=== PATIENT | female | born 1965 | race Caucasian/White ===

== ENCOUNTER 2016-03-27 11:55 | Observation (INO) | payer OTHER ==
--- NOTE | 2016-03-27 12:08 | PDOC ---
History of Present Illness - General Chief Complaint: Palpitations Stated Complaint: PALPITATIONS Time Seen by Provider: 03/27/16 12:04 - History of Present Illness Initial Comments: 03/27/16 13:02 Chief complaint: Palpitations History of present illness: Patient began experiencing episodes of chest palpitations approximately one week ago while on a college visit with her daughter in [place]. These episodes have persisted, last anywhere from a few seconds to a few minutes, and resolved spontaneously. They are times accompanied by mild lightheadedness, but no vertigo or syncope. There's been no chest pain or shortness of breath, nausea or diaphoresis. Review of systems: As noted above. In addition, no vaginal bleeding or discharge , no urinary tract symptoms including urgency frequency hesitancy dysuria or hematuria, no abdominal pain, no visual or focal neurologic symptoms. Remainder systems reviewed and found to be negative Past medical history: Patient has no history of cardiac disease, and no prior complaints of chest pain, shortness of breath, lightheadedness, dizziness, vertigo, or palpitations. No significant medical or surgical problems past or present. 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 Occasional social alcohol, none recently. Admits considerable stress due to her daughter's college search and possibly leaving home for [place]. Family history: Reviewed and significant for thyroid cancer, father who of a probable [place] in his late 40s. Physical exam: Alert oriented 3 well-developed well-nourished no acute distress cheerful and cooperative Afebrile, vital signs normal. However, runs of nonsustained V. tach are present on the monitor. Past History - Past Medical History Allergies/Adverse Reactions: Allergies Allergy/AdvReac Type Severity Reaction Status Date / Time Penicillins Allergy Verified 03/27/16 11:56 Sulfa (Sulfonamide Allergy Verified 03/27/16 11:56 Antibiotics) Home Medications: Ambulatory Orders Ibuprofen [Motrin -] 600 mg PO TID PRN 03/27/16 Methocarbamol [Robaxin -] 500 mg PO BID PRN 03/27/16 Other medical history: H/O CHRONIC SHOULDER/ NECK PAIN - Psycho/Social/Smoking Cessation Hx Anxiety: No Suicidal Ideation: No Smoking History: Current every day smoker Have you smoked in the past 12 months: Yes Number of Cigarettes Smoked Daily: 20 Information on smoking cessation initiated: Yes 'Breaking Loose' booklet given: 03/27/16 Hx Alcohol Use: No Drug/Substance Use Hx: No Substance Use Type: None *Physical Exam - Vital Signs Last Vital Signs Temp Pulse Resp BP Pulse Ox 98.4 F 79 16 144/90 99 03/27/16 11:55 03/27/16 13:48 03/27/16 13:48 03/27/16 13:48 03/27/16 13:48 ED Treatment Course - LABORATORY CBC & Chemistry Diagram: 03/27/16 12:20 03/27/16 12:20 - ADDITIONAL ORDERS Additional order review: Laboratory Results 03/27/16 03/27/16 03/27/16 13:30 12:45 12:20 INR Sodium Potassium Chloride Carbon Dioxide Anion Gap BUN Creatinine Creat Clearance w eGFR Random Glucose Calcium Magnesium 2.1 Total Bilirubin AST ALT Alkaline Phosphatase Creatine Kinase Creatine Kinase Index Cancelled CK-MB (CK-2) Troponin I Total Protein Albumin TSH 1.76 Urine Color Yellow Urine Appearance Clear Urine pH 6.0 Ur Specific [place] <= 1.005 Urine Protein Negative Urine Glucose (UA) Negative Urine Ketones Negative Urine Blood Negative Urine Nitrite Negative Urine Bilirubin Negative Urine Urobilinogen 0.2 e.u/dl Ur Leukocyte Esterase Negative Urine HCG, Qual Negative 03/27/16 03/27/16 03/27/16 12:20 12:20 12:20 INR 0.93 L Sodium 138 Potassium 4.3 Chloride 104 Carbon Dioxide 23 Anion Gap 11 BUN 10 Creatinine 0.7 Creat Clearance w eGFR > 60 Random Glucose 85 Calcium 9.9 Magnesium Total Bilirubin 0.9 AST 27 ALT 24 Alkaline Phosphatase 76 Creatine Kinase 246 H Creatine Kinase Index Cancelled CK-MB (CK-2) 5.0 H Troponin I < 0.03 L Total Protein 7.5 Albumin 4.8 TSH Urine Color Urine Appearance Urine pH Ur Specific [place] Urine Protein Urine Glucose (UA) Urine Ketones Urine Blood Urine Nitrite Urine Bilirubin Urine Urobilinogen Ur Leukocyte Esterase Urine HCG, Qual 03/27/16 12:20 RBC 5.27 H MCV 89.0 MCHC 33.5 RDW 13.2 MPV 9.4 D Neutrophils % 67.6 Lymphocytes % 25.1 Monocytes % 6.0 Eosinophils % 0.8 Basophils % 0.5 - RADIOLOGY Radiology Studies Ordered: Category Date Time Status CHEST X-RAY PORTABLE* [RAD] Stat Radiology 03/27/16 13:25 Completed Medical Decision Making - Medical Decision Making 03/27/16 14:32 EKG: Sinus rhythm with PVCs, frequent. Normal axes and intervals. No ST-T wave changes. Normal EKG, other than frequent PVCs While being monitored, runs of nonsustained VT were noted, as many as 5 consecutive beats. CBC and chemistries showed a white count of 13,000 with a normal differential, mildly elevated H&H. Cardiac enzymes were normal. Electrolytes and magnesium are normal. Urine clear, negative Dr. Scott Peng contacted by phone. Case was discussed. She will admit the patient for further monitoring and cardiac evaluation Dr. Altman, typesetter perforator operator, was contacted. The case was discussed. He recommended no immediate treatment but will see the patient in consultation as soon as possible. Patient remains asymptomatic, palpitations have resolved, and the monitor is revealing less frequent PVCs. Stable upon transfer to the floor. *DC/Admit/Observation/Transfer Diagnosis at time of Disposition: Ventricular tachycardia - Discharge Dispostion Admit: Yes Decision to Admit order Date/Time: Decision to Admit Order Category Date Time Status Decision to Admit to Hospital Routine Admission 03/27/16 13:55 Active
[2016-03-27 12:52] LABS: MAGNESIUM 2.1 mg/dL (1.8-2.4)
[2016-03-27 12:54] LABS: ALBUMIN 4.8 g/dl (3.5-5.0); ALK PHOS 76 U/L (32-92); ANION GAP 11 (8-16); BILIRUBIN,TOTAL 0.9 mg/dl (0.2-1.0); CALCIUM 9.9 mg/dl (8.4-10.2); CO2 23 mmol/L (22-28); CPK(DFH) 246 IU/L (26-140); CREATININE 0.7 mg/dl (0.6-1.3); GLUCOSE,RANDOM 85 mg/dl (74-106); SGOT/AST 27 U/L (10-42); SGPT/ALT 24 U/L (10-40); TOT PROT 7.5 g/dl (6.4-8.3)
[2016-03-27 13:05] LABS: URINE APPEARANCE Clear; URINE BILIRUBIN Negative (NEGATIVE); URINE BLOOD Negative (NEGATIVE); URINE GLUCOSE (UA) Negative (NEGATIVE); URINE KETONE Negative (NEGATIVE); URINE LEUK ESTERASE Negative (NEGATIVE); URINE NITRITE Negative (NEGATIVE); URINE PROTEIN Negative (NEGATIVE); URINE UROBILINOGEN 0.2 E.U/dl (0.2-1.0)
[2016-03-27 13:08] LABS: URINE COLOR YELLOW
[2016-03-27 13:24] LABS: TROPONIN I (DFP) < 0.03 ng/ml (0.03-0.50)
[2016-03-27 13:28] LABS: INR 0.93 (0.82-1.09); PROTHROMBIN TIME (PATIENT) 10.4 SEC (10.2-13.0)
[2016-03-27 13:29] LABS: BASOPHIL 0.5 % (0-2.0); EOSINOPHIL 0.8 % (0-4.5); MCH 29.8 pg (25.7-33.7); MCHC 33.5 g/dl (32.0-36.0); MEAN PLT VOLUME 9.4 fl (7.5-11.1); NEUTROPHILS 67.6 % (42.8-82.8); PLATELET COUNT 262 K/MM3 (134-434); RDW 13.2 % (11.6-15.6); WHITE BLOOD COUNT 13.3 K/mm3 (4.0-10.0)
[2016-03-27 13:42] LABS: THYROXINE (T4) 8.1 ug/dl (4.8-13.9)
[2016-03-27 13:48] LABS: THYROID STIMULATING HORMONE 1.76 uIU/ml (0.358-3.74)
[2016-03-27 16:18] VITALS: BMI 25.6
--- NOTE | 2016-03-27 18:06 | CON.CARD ---
Consult Consult Specialty:: Cardiology Referred by:: ED Reason for Consultation:: Palpitations, PVC - History of Present Illness Chief Complaint: Palpitations History of Present Illness: 50 yo patient h/o tobacco abuse presented for evaluation of palpitations (at times exertional and also at rest) starting approximately one week ago while on a college visit with her daughter in [place]. These episodes have persisted, last anywhere from a few seconds to a few minutes, and resolved spontaneously. They are times accompanied by mild lightheadedness, without true syncope. She denies chest pain or shortness of breath, orthopnea, PND, LE edema or change in exercise capacity. Review of systems: As noted above. In addition, no vaginal bleeding or discharge , no urinary tract symptoms including urgency frequency hesitancy dysuria or hematuria, no abdominal pain, no visual or focal neurologic symptoms. Remainder systems reviewed and found to be negative Past medical history: Patient has no history of cardiac disease, and no prior complaints of chest pain, shortness of breath, lightheadedness, dizziness, vertigo, or palpitations. No significant medical or surgical problems past or present. 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 Occasional social alcohol, none recently. Admits considerable stress due to her daughter's college search and possibly leaving home for [place]. Family history: Reviewed and significant for thyroid cancer, father who of a probable [place] in his late 40s. - History Source History Provided By: Patient Limitations to Obtaining History: No Limitations - Past Medical History ...: No - Alcohol/Substance Use Hx Alcohol Use: No - Smoking History Smoking history: Current every day smoker Have you smoked in the past 12 months: Yes Aproximately how many cigarettes per day: 20 Home Medications - Allergies Allergies/Adverse Reactions: Allergies Allergy/AdvReac Type Severity Reaction Status Date / Time Penicillins Allergy Verified 03/27/16 11:56 Sulfa (Sulfonamide Allergy Verified 03/27/16 11:56 Antibiotics) - Home Medications Home Medications: Ambulatory Orders Ibuprofen [Motrin -] 600 mg PO TID PRN 03/27/16 Methocarbamol [Robaxin -] 500 mg PO BID PRN 03/27/16 Review of Systems - Review of Systems Cardiovascular: reports: Palpitations Vital Signs: Vital Signs Temperature 98.4 F 03/27/16 11:55 Pulse Rate 70 03/27/16 15:00 Respiratory Rate 18 03/27/16 15:00 Blood Pressure 140/78 03/27/16 15:00 O2 Sat by Pulse Oximetry (%) 99 03/27/16 13:48 Constitutional: Yes: No Distress, Calm Neck: Yes: Supple Respiratory: Yes: Regular, CTA Bilaterally Gastrointestinal: Yes: Normal Bowel Sounds, Soft Cardiovascular: Yes: Regular Rate and Rhythm JVD: No Carotid Bruit: No Heart Sounds: Yes: S1, S2 Edema: No - Other Data Labs, Other Data: INR, PTT INR 0.93 (0.82-1.09) L 03/27/16 12:20 SR @ 76 with ventricular couplet Imaging - Results Chest X-ray: Report Reviewed (NAD) Problem List - Problems (1) Ventricular ectopic beats Code(s): I49.3 - VENTRICULAR PREMATURE DEPOLARIZATION (2) Palpitations Code(s): R00.2 - PALPITATIONS (3) Tobacco abuse Code(s): Z72.0 - TOBACCO USE Assessment/Plan 1. Palpitations referable to PVC 2. Tobacco abuse P:1. Start Toprol XL 25 qd 2. Holter monitor to assess arrhythmia burden 3. Echocardiogram to assess ventricular and valve fxn 4. Tobacco cessation 5. Thank you for consultative opportunity
[2016-03-27] MEDS ORDERED: IBUPROFEN 600 MG TABLET (FP) PO PRN (19:01)
[2016-03-27] MEDS ORDERED: diphenhydrAMINE HCL 25 MG CAPSULE (FP) PO PRN (19:05)
[2016-03-27] MEDS ORDERED: DOCUSATE SODIUM 100 MG CAPSULE (FP) PO PRN (19:06)
[2016-03-27] MEDS: METOPROLOL SUCCINATE 25 MG TAB.SR.24H (FP) PO SCH (19:21)
[2016-03-27] MEDS: HEPARIN NA (PORCINE) 5,000 UNITS/ML 1ML VIAL SQ SCH (21:18)
--- NOTE | 2016-03-27 21:44 | PN ---
Progress Note, Physician Chief Complaint: CORRECTION -> WRONG Format -> SEE H&P format History of Present Illness: 50 f w only signif PMH for Nicotine dependance who was w [facility] 1 week ago w sudden onset of palpiations both slow and fast intermittently w some assoc lightheadedness but no other sxs. 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 She has been placed under Observation. Cardiology was consulted who started pt on Metoprolol Succ 25 mg/ day. Pt is also w Garment Steamer. - Current Medication List Current Medications: Active Medications Diphenhydramine HCl (Benadryl -) 25 mg PO HS PRN PRN Reason: INSOMNIA Docusate Sodium (Colace -) 100 mg PO BID PRN PRN Reason: CONSTIPATION Heparin Sodium (Porcine) (Heparin -) 5,000 unit SQ BID [facility] Last Admin: 03/27/16 21:18 Dose: 5,000 unit Ibuprofen (Motrin -) 600 mg PO TID PRN PRN Reason: PAIN Metoprolol Succinate (Toprol Xl -) 25 mg PO DAILY [facility] Last Admin: 03/27/16 19:21 Dose: 25 mg - Objective Vital Signs: Vital Signs Temperature 98.4 F 03/27/16 11:55 Pulse Rate 70 03/27/16 15:00 Respiratory Rate 18 03/27/16 19:02 Blood Pressure 140/78 03/27/16 15:00 O2 Sat by Pulse Oximetry (%) 99 03/27/16 13:48 Constitutional: Yes: No Distress Labs: INR, PTT INR 0.93 (0.82-1.09) L 03/27/16 12:20
--- NOTE | 2016-03-27 21:45 | HP ---
Admitting History and Physical - Admission Chief Complaint: Palpitations onset 1 wk pre admissio History of Present Illness: 50 f w only signif PMH for Nicotine dependance who was w [facility] 1 week ago w sudden onset of palpiations both slow and fast intermittently w some assoc lightheadedness but no other sxs. 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 She has been placed under Observation. Cardiology was consulted who started pt on Metoprolol Succ 25 mg/ day. Pt is also w Graphic Engineer. History Source: Patient Limitations to Obtaining History: No Limitations - Past Medical History ...: No - Smoking History Smoking history: Current every day smoker Have you smoked in the past 12 months: Yes Aproximately how many cigarettes per day: 20 - Alcohol/Substance Use Hx Alcohol Use: No - Social History ADL: Independent Home Medications - Allergies Allergies/Adverse Reactions: Allergies Allergy/AdvReac Type Severity Reaction Status Date / Time Penicillins Allergy Verified 03/27/16 11:56 Sulfa (Sulfonamide Allergy Verified 03/27/16 11:56 Antibiotics) - Home Medications Home Medications: Ambulatory Orders Ibuprofen [Motrin -] 600 mg PO TID PRN 03/27/16 Methocarbamol [Robaxin -] 500 mg PO BID PRN 03/27/16 Review of Systems - Review of Systems Constitutional: reports: No Symptoms Neck: reports: No Symptoms Cardiovascular: reports: Chest Pain (NO), Edema (NO), Palpitations (see HPI), Shortness of Breath (NO) Respiratory: reports: No Symptoms Genitourinary: reports: No Symptoms Breasts: reports: No Symptoms Reported Musculoskeletal: reports: No Symptoms Integumentary: reports: No Symptoms Neurological: reports: No Symptoms Endocrine: reports: No Symptoms Physical Examination Vital Signs: Vital Signs Temperature 98.4 F 03/27/16 11:55 Pulse Rate 70 03/27/16 15:00 Respiratory Rate 18 03/27/16 19:02 Blood Pressure 140/78 03/27/16 15:00 O2 Sat by Pulse Oximetry (%) 99 03/27/16 13:48 Constitutional: Yes: Well Nourished, Calm Neck: Yes: WNL, Supple, Thyromegaly (none) Cardiovascular: Yes: Tachycardia, Pulse Irregular (NO), Bruit (NO), JVD (NO), Gallop (NO), Murmur (NO) Gastrointestinal: Yes: Normal Bowel Sounds, Soft ...Rectal Exam: Yes: Deferred Musculoskeletal: Yes: WNL Extremities: Yes: WNL Edema: No Peripheral Pulses: Left Doralis Pedis: 3+, Right Dorsalis Pedis: 2+ Integumentary: Yes: WNL Neurological: Yes: Alert, Oriented ...Motor Strength: WNL Psychiatric: Yes: Alert, Oriented Labs: Laboratory Last Values WBC 13.3 K/mm3 (4.0-10.0) H D 03/27/16 12:20 RBC 5.27 M/mm3 (3.60-5.2) H 03/27/16 12:20 Hgb 15.7 GM/dL (10.7-15.3) H 03/27/16 12:20 Hct 46.9 % (32.4-45.2) H 03/27/16 12:20 MCV 89.0 fl (80-96) 03/27/16 12:20 MCHC 33.5 g/dl (32.0-36.0) 03/27/16 12:20 RDW 13.2 % (11.6-15.6) 03/27/16 12:20 Plt Count 262 K/MM3 (134-434) 03/27/16 12:20 MPV 9.4 fl (7.5-11.1) D 03/27/16 12:20 Neutrophils % 67.6 % (42.8-82.8) 03/27/16 12:20 Lymphocytes % 25.1 % (8-40) 03/27/16 12:20 Monocytes % 6.0 % (3.8-10.2) 03/27/16 12:20 Eosinophils % 0.8 % (0-4.5) 03/27/16 12:20 Basophils % 0.5 % (0-2.0) 03/27/16 12:20 INR 0.93 (0.82-1.09) L 03/27/16 12:20 Sodium 138 mmol/L (136-145) 03/27/16 12:20 Potassium 4.3 mmol/L (3.5-5.1) 03/27/16 12:20 Chloride 104 mmol/L (98-107) 03/27/16 12:20 Carbon Dioxide 23 mmol/L (22-28) 03/27/16 12:20 Anion Gap 11 (8-16) 03/27/16 12:20 BUN 10 mg/dl (7-18) 03/27/16 12:20 Creatinine 0.7 mg/dl (0.6-1.3) 03/27/16 12:20 Creat Clearance w eGFR > 60 (>60) 03/27/16 12:20 Random Glucose 85 mg/dl (74-106) 03/27/16 12:20 Calcium 9.9 mg/dl (8.4-10.2) 03/27/16 12:20 Magnesium 2.1 mg/dL (1.8-2.4) 03/27/16 12:20 Total Bilirubin 0.9 mg/dl (0.2-1.0) 03/27/16 12:20 AST 27 U/L (10-42) 03/27/16 12:20 ALT 24 U/L (10-40) 03/27/16 12:20 Alkaline Phosphatase 76 U/L (32-92) 03/27/16 12:20 Creatine Kinase 246 IU/L (26-140) H 03/27/16 12:20 Creatine Kinase Index Cancelled 03/27/16 12:20 CK-MB (CK-2) 5.0 ng/ml (0.3-4.0) H 03/27/16 12:20 Troponin I < 0.03 ng/ml (0.03-0.50) L 03/27/16 12:20 Total Protein 7.5 g/dl (6.4-8.3) 03/27/16 12:20 Albumin 4.8 g/dl (3.5-5.0) 03/27/16 12:20 TSH 1.76 uIU/ml (0.358-3.74) 03/27/16 12:20 Urine Color Yellow 03/27/16 12:45 Urine Appearance Clear 03/27/16 12:45 Urine pH 6.0 (4.5-8) 03/27/16 12:45 Ur Specific [place] <= 1.005 (1.005-1.025) 03/27/16 12:45 Urine Protein Negative (NEGATIVE) 03/27/16 12:45 Urine Glucose (UA) Negative (NEGATIVE) 03/27/16 12:45 Urine Ketones Negative (NEGATIVE) 03/27/16 12:45 Urine Blood Negative (NEGATIVE) 03/27/16 12:45 Urine Nitrite Negative (NEGATIVE) 03/27/16 12:45 Urine Bilirubin Negative (NEGATIVE) 03/27/16 12:45 Urine Urobilinogen 0.2 e.u/dl (0.2-1.0) 03/27/16 12:45 Ur Leukocyte Esterase Negative (NEGATIVE) 03/27/16 12:45 Urine HCG, Qual Negative 03/27/16 12:45 Imaging - Results X-ray: Report Reviewed (NEG) Problem List - Problems (1) Palpitations Assessment/Plan: recent onset w/o hx Thry dis or anemia w/o assoc sxs w andw/o exertion. Pt palced on Observation and Cardiac cont monitorung. Cardiology on board and manging medically w low dose BB. Resolving. Wkup incl Echo In am and Holter. Antcipate pt will be DC home then. I agree w plan of care. Defer to Cardio. Code(s): R00.2 - PALPITATIONS (2) Tobacco abuse Assessment/Plan: tobacco cessation. Code(s): Z72.0 - TOBACCO USE (3) Ventricular tachycardia Assessment/Plan: sudden onset during exertion and some psychosocial stressors; no evidence of anemia or Hyperthyroidism. Pt w nicotine dependance. Presently being monitored and managed and reolving w BB per Cardio. I agree w management. Code(s): I47.2 - VENTRICULAR TACHYCARDIA (4) PVC (premature ventricular contraction) Assessment/Plan: see above . Code(s): I49.3 - VENTRICULAR PREMATURE DEPOLARIZATION
[2016-03-27 22:49] LABS: CPK(DFH) 181 IU/L (26-140)
[2016-03-27 23:02] LABS: TROPONIN I (DFP) < 0.03 ng/ml (0.03-0.50)
[2016-03-27 23:03] LABS: CK MB 3.9 ng/ml (0.3-4.0)
[2016-03-28 09:15] LABS: CPK(DFH) 114 IU/L (26-140)
[2016-03-28 09:32] LABS: TROPONIN I (DFP) < 0.03 ng/ml (0.03-0.50)
[2016-03-28] MEDS: METOPROLOL SUCCINATE 25 MG TAB.SR.24H (FP) PO SCH (09:56)
[2016-03-28] MEDS: HEPARIN NA (PORCINE) 5,000 UNITS/ML 1ML VIAL SQ SCH (09:56)
[2016-03-28 10:02] VITALS: TEMP 97.8
[2016-03-28] MEDS ORDERED: ASPIRIN 81 MG CHEWABLE TABLETS PO ONE (12:30)
[2016-03-28 13:37] VITALS: BP 132/72; PULSE 69
--- NOTE | 2016-03-28 16:20 | EKG ---
Test Reason : Blood Pressure : / mmHG Vent. Rate : 069 BPM Atrial Rate : 069 BPM P-R Int : 158 ms QRS Dur : 094 ms QT Int : 428 ms P-R-T Axes : 063 053 030 degrees QTc Int : 458 ms NORMAL SINUS RHYTHM NONSPECIFIC T WAVE ABNORMALITY WHEN COMPARED WITH ECG OF 27-MAR-2016 12:01, PREMATURE VENTRICULAR COMPLEXES ARE NO LONGER PRESENT NONSPECIFIC T WAVE ABNORMALITY NOW EVIDENT IN LATERAL LEADS Confirmed by MD SARITA, KASSANDRA ([id number]) on 03/28/2016 4:20:20 PM Referred By: Confirmed By:KASSANDRA STEIN MD
--- NOTE | 2016-03-28 16:21 | EKG ---
Test Reason : Blood Pressure : / mmHG Vent. Rate : 076 BPM Atrial Rate : 076 BPM P-R Int : 142 ms QRS Dur : 092 ms QT Int : 410 ms P-R-T Axes : 062 060 049 degrees QTc Int : 461 ms SINUS RHYTHM WITH OCCASIONAL and consecutive PREMATURE VENTRICULAR COMPLEXES NO PREVIOUS ECGS AVAILABLE Confirmed by MD STEIN MARJORY ([id number]) on 03/28/2016 4:21:12 PM Referred By: EBONIE SMITH Confirmed By:KASSANDRA STEIN MD
--- NOTE | 2016-03-31 11:59 | HOL ---
Hook-up date: 2016-03-28 09:29:00 Duration: 02:30:00 Test Indications: PALPITATIONS Medications: 9238 QRS complexes 250 Ventricular ectopics which represent 2 % of total QRS comp. 1 Supraventricular ectopics which represent <1 % of total QRS comp. * Paced QRS complexs which represent % of total QRS comp. 11 % of Time Classified as Noise VENTRICULAR ECTOPY 171 Isolated 3 Bigeminal Cycles 27 Couplets 7 Runs 25 Beats in Runs 4 Beats LONGEST at 140 BPM at 10:25:24 2016-03-28 3 Beats FASTEST at 187 BPM at 11:37:07 2016-03-28 SUPRAVENTRICULAR ECTOPY 1 Isolated 0 Couplets 0 Runs 0 Beats in Runs * Beats LONGEST at * BPM at :: -- * Beats FASTEST at * BPM at :: -- HEART RATES 52 MIN at 11:45:23 2016-03-28 69 AVG 80 MAX at 09:55:33 2016-03-28 LONGEST RR 1.512 secs at 11:44:21 2016-03-28 SCANNED BY SAÚL GENTILE 03/28/2016 NO DIARY SUBMITTED MONITOR TAKEN OFF EARLY DUE TO PATIENT BEING TRANSFERRED OUT Sinus rhythm with average HR 69 bpm (range 52-80 bpm) No significant pauses Rare PAC Occasioanl PVCs Rare non-sustained runs of ventricular tachycardia, but longest run was only 4 beats Confirmed by PRINCE JULIEN MD ([id number]) on 03/31/2016 11:59:01 AM Referred By: Overread By: PRINCE JULEIN MD
--- NOTE | 2016-04-07 13:57 | EKG ---
Test Reason : Blood Pressure : / mmHG Vent. Rate : 056 BPM Atrial Rate : 056 BPM P-R Int : 160 ms QRS Dur : 090 ms QT Int : 434 ms P-R-T Axes : 061 054 040 degrees QTc Int : 418 ms SINUS BRADYCARDIA NONSPECIFIC T WAVE ABNORMALITY ABNORMAL ECG WHEN COMPARED WITH ECG OF 28-MAR-2016 06:59, NO SIGNIFICANT CHANGE WAS FOUND Confirmed by DERRICK SMITH, YOU ([id number]), editor sound EMANUEL QUIÑONEZ ([id number]) on 04/07/2016 1:57:30 PM Referred By: DR CRUMP Confirmed By:YOU MEZA MD
== END 2016-03-28 14:22 | disposition short-term general hospital (02) ==
LOC: FER 11:55 → FM/S 14:31 → UNDOADMOB 14:40
DX: I47.2 Ventricular tachycardia (principal); F17.210 Nicotine dependence, cigarettes, uncomplicated; I49.3 Ventricular premature depolarization
CPT/HCPCS: 36415; 71010-TC; 80053; 81003; 82465; 82550; 82553; 83735; 84436; 84443; 84484; 84703; 85025; 85610; 93005; 93010; 93225; 93226; 93306-TC; 99285-25; G0378; J1644

== ENCOUNTER 2021-03-21 09:38 | Emergency (ER) | payer OTHER, BC ==
[2021-03-21 10:02] VITALS: BP 116/76; PULSE 65; TEMP 97.8; BMI 25.8
[2021-03-21 10:35] LABS: ALBUMIN 4.5 g/dl (3.4-5.0); BILIRUBIN,TOTAL 0.6 mg/dl (0.2-1); CALCIUM 9.8 mg/dl (8.5-10); CREATININE 0.7 mg/dl (0.55-1.3); PHOSPHOROUS 3.4 mg/dl (2.5-4.9); URIC ACID 5.3 mg/dl (2.6-7.2)
[2021-03-21 11:37] LABS: BASO % 0.7 % (0-2.0); EOS % 1.4 % (0-4.5); HEMATOCRIT 38.7 % (32.4-45.2); HEMOGLOBIN 13.3 GM/dL (10.7-15.3); LYMPH % 34.5 % (8-40); MCH 30.7 pg (25.7-33.7); MCHC 34.4 g/dl (32.0-36.0); MEAN CELL VOLUME 89.1 fl (80-96); MEAN PLT VOLUME 8.8 fl (7.5-11.1); MONO % 7.6 % (3.8-10.2); NEUT % 55.8 % (42.8-82.8); PLATELET COUNT 240 10^3/uL (134-434); RBC 4.34 M/mm3 (3.60-5.2); RDW 13.2 % (11.6-15.6); WHITE BLOOD COUNT 8.2 K/mm3 (4.0-10.0)
[2021-03-21 12:36] LABS: HIV INTERPRETATION NEGATIVE (NEGATIVE)
== END 2021-03-21 16:12 | disposition home or self-care (01) ==
LOC: FER 09:38
DX: S61.236A Puncture wound without foreign body of right little finger without damage to nail, initial encounter (principal); W46.0XXA Contact with hypodermic needle, initial encounter
CPT/HCPCS: 36415; 80053; 82465; 82977; 83615; 84100; 84478; 84550; 85025; 86704; 86803; 87340; 87389; 87517; 99283-25